=== PATIENT | female | born 1955 | race Caucasian/White ===

== ENCOUNTER 2020-04-01 19:17 | Inpatient (IN) | payer MEDICARE ==
[2020-04-05] MEDS: Ibuprofen 600 MG TAB PO PRN (19:56)
[2020-04-05] MEDS ORDERED: Midodrine HCl 2.5 MG TAB PO PRN (20:30)
[2020-04-05] MEDS ORDERED: Loperamide HCl 2 MG CAP PO PRN (20:30)
[2020-04-05] MEDS ORDERED: diphenhydrAMINE 25 MG CAP PO PRN (20:30)
[2020-04-05] MEDS ORDERED: clonazePAM 1 MG TAB PO PRN (20:44)
[2020-04-05] MEDS ORDERED: Artificial Tear Sol 15 ML BOT EA EYE PRN (21:09)
[2020-04-05] MEDS ORDERED: Simethicone Chewable 80 MG TAB PO PRN (21:11)
[2020-04-05] MEDS: Ascorbic Acid 500 mg Chewable Tablet PO SCH (21:26)
[2020-04-05] MEDS: Senokot S 8.6-50 MG TAB PO SCH (21:32)
[2020-04-05] MEDS: traZODone HCl 50 MG TAB PO SCH (21:33)
[2020-04-05] MEDS: Famotidine 20 MG TAB PO SCH (21:34)
[2020-04-05] MEDS: levETIRAcetam 500 MG TAB PO SCH (21:34)
[2020-04-05] MEDS: Metoprolol Tartrate 25 MG TAB PO SCH (21:34)
[2020-04-05] MEDS: Venlafaxine HCl 37.5 MG TAB PO SCH (21:35)
[2020-04-05] MEDS: Pilocarpine 5 MG TAB PO SCH (21:36)
[2020-04-05] MEDS: cloNIDine 0.1 MG TAB PO SCH (21:42)
[2020-04-05] MEDS: Melatonin 3 MG TAB PO PRN (21:49)
[2020-04-06] MEDS: HYDROcodone/Acetaminophen 10/325 mg Tablet PO PRN ×2 (05:39→12:05)
[2020-04-06] MEDS: cloNIDine 0.1 MG TAB PO SCH ×2 (06:28→11:50)
[2020-04-06] MEDS: Ibuprofen 600 MG TAB PO PRN ×2 (06:34→14:01)
[2020-04-06] MEDS ORDERED: Ibuprofen 600 MG TAB PO SCH (07:30)
[2020-04-06 07:35] LABS: Bilirubin Negative (Negative); Blood, Urine Moderate (Negative); Clarity Cloudy (Clear); Glucose, Urine (Dipstick) Negative (Negative); Ketone, Urine Negative (Negative); Leukocyte Large (Negative); Nitrite Negative (Negative); Protein, Urine (Dipstick) 30 mg/dL (Neg-Trace); Urobilinogen 0.2 mg/dL (Less than 2)
[2020-04-06 07:53] LABS: Bacteria/HPF 2+ HPF (None Seen)
[2020-04-06] MEDS: Polyethylene Glycol 3350 17 GM Packet PO SCH (08:32)
[2020-04-06] MEDS: Famotidine 20 MG TAB PO SCH ×2 (08:32→20:30)
[2020-04-06] MEDS: Losartan Potassium 50 MG TAB PO SCH (08:32)
[2020-04-06] MEDS: Aspirin 81 mg Enteric Coated Tablet PO SCH (08:32)
[2020-04-06] MEDS: Thyroid 30 MG TAB PO SCH (08:32)
[2020-04-06] MEDS: Senokot S 8.6-50 MG TAB PO SCH ×2 (08:32→20:32)
[2020-04-06] MEDS: Bupropion 150 MG SR TAB PO SCH ×2 (08:32→20:29)
[2020-04-06] MEDS: Pilocarpine 5 MG TAB PO SCH ×3 (08:33→20:30)
[2020-04-06] MEDS: Clopidogrel Bisulfate 75 MG TAB PO SCH (08:33)
[2020-04-06] MEDS: levETIRAcetam 500 MG TAB PO SCH ×2 (08:34→20:30)
[2020-04-06] MEDS: Ferrous Sulfate 325 MG TAB PO SCH ×2 (08:34→16:45)
[2020-04-06] MEDS: Ascorbic Acid 500 mg Chewable Tablet PO SCH ×2 (08:34→20:33)
[2020-04-06] MEDS: Metoprolol Tartrate 25 MG TAB PO SCH ×2 (08:35→20:31)
[2020-04-06] MEDS: Venlafaxine HCl 37.5 MG TAB PO SCH ×2 (08:35→20:33)
[2020-04-06] MEDS ORDERED: Polyethylene Glycol 3350 17 GM Packet PO PRN (15:43)
[2020-04-06] MEDS ORDERED: cloNIDine 0.1 MG TAB PO PRN (15:43)
[2020-04-06] MEDS: traZODone HCl 50 MG TAB PO SCH (20:32)
--- NOTE | 2020-04-06 22:59 | HP ---
PRIMARY CARE PHYSICIAN: Out of town. REASON FOR ADMISSION: For skilled rehabilitation at [facility] status post mechanical fall, which led to fracture of right tibia and fibula and seizure disorder with acute metabolic encephalopathy, now resolved. HISTORY OF PRESENT ILLNESS: Ms. 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 The patient presented to [facility] in [place] on the 22 of March after a mechanical fall and upon evaluation, she was noted to have a right tibia and fibula fracture. The patient denied any loss of consciousness or seizure activity due to her seizure history and confirmed this. The patient was seen by orthopedic surgeon and had a right tibia intramedullary nail by Dr. Beltre on March 23, 2020. The patient tolerated the surgical procedure well and she progressively improved, but unfortunately admission was complicated by episodes of hallucination and confusion about 4 to 5 days after surgical procedure. Initially, the patient was thought that confusion and hallucinations were due to gabapentin and this was discontinued. Again, it did not resolve and they thought this started after she was started on muscle relaxant, Flexeril. This was also discontinued. Unfortunately, the patient's confusion, hallucinations, shaking spells, and anxiety continued to worsen. The patient had a CAT scan of the brain done on the 01 of April and this showed a stable hyperdense lesion in the right temporal lobe, shown to represent a cavernoma on prior MRI with no acute intracranial abnormality. The patient was seen by neurologist, Dr. Saavedra, on the and she had an EEG done on the . Per Neurology, it was best to load with Keppra 1000 and then slowly taper down Wellbutrin as this was thought to lower the seizure threshold. Patient progressively improved after medication changes and on April 02, she was doing much better and by April 05, per family, she was back to baseline. Due to the complication and recent surgery, the decision was made to transfer the patient to skilled rehabilitation prior to discharge back to her home. During hospitalization, it was also noted the patient had a mild anemia due to postoperation and she was started on ferrous sulfate b.i.d. Upon evaluation of patient today, she was excited to be in facility. She continues to complain of lower back pain which is chronic and right-sided leg pain. The patient denies any chest pain. She states she is having regular bowel movements. She denies any shortness of breath, any palpitations, or dizziness. PAST MEDICAL HISTORY: 1. CVA with residual left-sided weakness. 2. Seizure disorder. 3. Atrial fibrillation. 4. Anxiety. 5. Chronic back pain. 6. Hypertension. ALLERGIES: BACLOFEN, BETAMETHASONE, CAPTOPRIL, CARVEDILOL, DILTIAZEM, IODINE, LACTOSE, LEVOTHYROXINE, MUPIROCIN, MACROBID, PREDNISONE, AND SULFA. CODE STATUS: The patient is a full code. PAST SURGICAL HISTORY: 1. Carotid endarterectomy. 2. Laminectomy. 3. Liver biopsy. 4. Facial fracture surgery. 5. Colon resection. 6. Now with right tibia-fibula fracture with right tibia intramedullary nail on March 23, 2020. SOCIAL HISTORY: The patient lives at home with her spouse. She denies any tobacco, alcohol, or illicit drug use. The patient states she is a former smoker for more than 10 years ago. MEDICATIONS: 1. [place] 10/325 one tab q.i.d. p.r.n. 2. Artificial Tears p.r.n. 3. Ascorbic acid 500 b.i.d. 4. Aspirin 81 mg b.i.d. 5. Wellbutrin 75 mg p.o. b.i.d. 6. Klonopin 1 mg p.o. t.i.d. p.r.n. anxiety. 7. Clonidine 0.1 mg q.6 p.r.n. with SBP greater than 170. 8. Plavix 75 mg daily. 9. Benadryl 25 mg q.6 p.r.n. itching or insomnia. 10. Pepcid 20 b.i.d. 11. Ferrous sulfate 325 mg b.i.d. 12. Motrin 600 mg q.8 p.r.n. for moderate pain. 13. Keppra 1000 mg b.i.d. 14. Losartan 50 mg daily. 15. Melatonin 3 mg q.8 p.r.n. 16. Metoprolol 25 mg b.i.d. 17. Midodrine 5 mg p.o. t.i.d. low blood pressure p.r.n. 18. Pilocarpine 5 mg t.i.d. 19. MiraLAX 17 g p.o. p.r.n. 20. p.o. at bedtime p.r.n. 21. Ace Thyroid 60 mg daily. 22. Trazodone 50 mg at bedtime. 23. Effexor 75 mg b.i.d. CODE STATUS: Patient is a full code. REVIEW OF SYSTEMS: GENERAL: Patient complains of generalized weakness. Denies any fevers or chills. HEENT: Eyes; denies eye pain, vision changes, conjunctiva information. Ear, nose, and throat; denies ear pain, discharge, mouth sores, or nasal congestion. RESPIRATORY: Patient denies any cough, shortness of breath, or orthopnea. CARDIOVASCULAR: Denies any chest pain, palpitation. GASTROINTESTINAL: Denies any nausea, vomiting, abdominal pain, or diarrhea. GENITOURINARY: Denies dysuria, frequency, urgency, or hematuria. MUSCULOSKELETAL: Patient does complain of severe lower back pain. Patient complaining of right lower leg pain. SKIN: Patient complains of bruising and ecchymoses to right lower extremities. NEUROLOGIC: Patient and complains of weakness. PSYCHIATRIC: Patient denies any confusion, depression, hallucinations. PHYSICAL EXAMINATION: VITAL SIGNS: Temperature 98.5, pulse 65, respirations 18, blood pressure 118/69, O2 saturation 99% on room air. GENERAL: The patient is alert, awake, and oriented x3. Sitting comfortably in bed, no apparent distress. HEENT: Normocephalic, atraumatic. Oral mucous membranes are moist. Eyes are nonicteric sclerae. NECK: Supple, symmetrical. No JVD. RESPIRATORY: Clear to auscultation bilaterally. No wheezing, rales, or rhonchi. CARDIOVASCULAR: Normal S1, S2. No murmurs. GASTROINTESTINAL: Positive bowel sounds. Nontender and nondistended. EXTREMITIES: Patient does have well-healing incision to right knee and right lateral lower leg. The patient does have some swelling to the right lower extremities. SKIN: Patient does have significant bruising and ecchymoses to right lower extremities. PSYCHIATRY: Patient does have a normal affect, normal behavior. Alert, awake, and oriented x3. NEUROLOGICAL: Patient does have some weakness to the right lower extremity. Otherwise, cranial nerves 2-12 is grossly intact. ASSESSMENT: 1. Status post ground level fall, on Plavix. 2. Right tibia-fibula fracture, status post right intramedullary nail. 3. Left great toe fracture, treated non-operatively. 4. Seizure disorder, now well controlled. 5. Acute metabolic encephalopathy, resolved. 6. Hypertension. 7. History of stroke with left-sided residual weakness. 8. Hypothyroidism. 9. Right temporal lobe mass, chronic. 10. Acute blood loss anemia. PLAN: Patient is a 64-year-old female, who is being admitted to [facility] due to a mechanical fall resulting in a right tibia-fibula fracture, status post right intramedullary nail. The patient had complications of seizure disorder and hallucinations, now resolved. We will consult Physical Therapy and Occupational Therapy to help with gait, balance, ambulation, and strengthening. We will consult Occupational Therapy to help with activities of daily living prior to discharge back to her home. We will place the patient back on all home medications. We will place the patient on seizure precautions. We will place the patient on the Plavix and aspirin for DVT prophylaxis and Pepcid for GI prophylaxis. We will monitor patient closely for any hemodynamic instability. We will continue patient on ferrous sulfate for acute anemia. ESTIMATED LENGTH OF STAY: 2 to 3 weeks. DISPOSITION: Back to her home with her . Estimated time used to prepare and complete this H and P and evaluate the patient is greater than 60 minutes. Job ID: [id number]
[2020-04-07] MEDS: HYDROcodone/Acetaminophen 10/325 mg Tablet PO PRN ×3 (00:15→17:12)
[2020-04-07] MEDS: Ascorbic Acid 500 mg Chewable Tablet PO SCH ×2 (08:30→21:16)
[2020-04-07] MEDS: Famotidine 20 MG TAB PO SCH ×2 (08:30→21:17)
[2020-04-07] MEDS: Metoprolol Tartrate 25 MG TAB PO SCH ×2 (08:30→21:19)
[2020-04-07] MEDS: Ferrous Sulfate 325 MG TAB PO SCH ×2 (08:30→17:13)
[2020-04-07] MEDS: Losartan Potassium 50 MG TAB PO SCH (08:30)
[2020-04-07] MEDS: levETIRAcetam 500 MG TAB PO SCH ×2 (08:30→21:17)
[2020-04-07] MEDS: Clopidogrel Bisulfate 75 MG TAB PO SCH (08:30)
[2020-04-07] MEDS: Aspirin 81 mg Enteric Coated Tablet PO SCH (08:30)
[2020-04-07] MEDS: Bupropion 150 MG SR TAB PO SCH ×2 (08:31→21:18)
[2020-04-07] MEDS: Pilocarpine 5 MG TAB PO SCH ×3 (08:31→21:16)
[2020-04-07] MEDS: Thyroid 30 MG TAB PO SCH (08:31)
[2020-04-07] MEDS: Venlafaxine HCl 37.5 MG TAB PO SCH ×2 (08:31→21:16)
[2020-04-07] MEDS: Polyethylene Glycol 3350 17 GM Packet PO SCH (08:31)
[2020-04-07] MEDS: Senokot S 8.6-50 MG TAB PO SCH ×2 (08:31→21:16)
[2020-04-07] MEDS ORDERED: clonazePAM 0.5 MG TAB PO PRN (11:23)
[2020-04-07] MEDS: Ibuprofen 800 MG TAB PO PRN ×2 (11:30→21:15)
[2020-04-07 15:59] VITALS: BMI 22.4
[2020-04-07] MEDS: traZODone HCl 50 MG TAB PO SCH (21:19)
[2020-04-07] MEDS: Melatonin 3 MG TAB PO PRN (21:25)
[2020-04-08] MEDS: HYDROcodone/Acetaminophen 10/325 mg Tablet PO PRN ×3 (08:20→22:30)
[2020-04-08] MEDS: Ferrous Sulfate 325 MG TAB PO SCH ×2 (08:21→17:10)
[2020-04-08] MEDS: Aspirin 81 mg Enteric Coated Tablet PO SCH (08:21)
[2020-04-08] MEDS: Pilocarpine 5 MG TAB PO SCH ×3 (08:21→20:45)
[2020-04-08] MEDS: Bupropion 150 MG SR TAB PO SCH ×2 (08:21→20:41)
[2020-04-08] MEDS: Senokot S 8.6-50 MG TAB PO SCH ×2 (08:22→20:45)
[2020-04-08] MEDS: Venlafaxine HCl 37.5 MG TAB PO SCH ×2 (08:22→20:45)
[2020-04-08] MEDS: Losartan Potassium 50 MG TAB PO SCH (08:23)
[2020-04-08] MEDS: Clopidogrel Bisulfate 75 MG TAB PO SCH (08:23)
[2020-04-08] MEDS: Famotidine 20 MG TAB PO SCH ×2 (08:23→20:45)
[2020-04-08] MEDS: Polyethylene Glycol 3350 17 GM Packet PO SCH (08:23)
[2020-04-08] MEDS: Metoprolol Tartrate 25 MG TAB PO SCH ×2 (08:23→20:49)
[2020-04-08] MEDS: levETIRAcetam 500 MG TAB PO SCH ×2 (08:23→20:45)
[2020-04-08] MEDS: Thyroid 30 MG TAB PO SCH (08:23)
[2020-04-08] MEDS: Ascorbic Acid 500 mg Chewable Tablet PO SCH ×2 (08:24→20:45)
[2020-04-08] MEDS ORDERED: Cipro 250 MG TAB PO SCH (10:30)
[2020-04-08] MEDS: Ibuprofen 800 MG TAB PO PRN ×2 (11:07→20:45)
[2020-04-08] MEDS: traZODone HCl 50 MG TAB PO SCH (20:41)
[2020-04-09] MEDS: Polyethylene Glycol 3350 17 GM Packet PO SCH (08:43)
[2020-04-09] MEDS: Ferrous Sulfate 325 MG TAB PO SCH ×2 (08:44→17:56)
[2020-04-09] MEDS: Pilocarpine 5 MG TAB PO SCH ×3 (08:44→21:28)
[2020-04-09] MEDS: Bupropion 150 MG SR TAB PO SCH ×2 (08:44→21:24)
[2020-04-09] MEDS: levETIRAcetam 500 MG TAB PO SCH ×2 (08:44→21:25)
[2020-04-09] MEDS: Thyroid 30 MG TAB PO SCH (08:44)
[2020-04-09] MEDS: Famotidine 20 MG TAB PO SCH ×2 (08:44→21:25)
[2020-04-09] MEDS: Aspirin 81 mg Enteric Coated Tablet PO SCH (08:45)
[2020-04-09] MEDS: HYDROcodone/Acetaminophen 10/325 mg Tablet PO PRN ×2 (08:45→21:35)
[2020-04-09] MEDS: Senokot S 8.6-50 MG TAB PO SCH ×2 (08:45→21:27)
[2020-04-09] MEDS: Clopidogrel Bisulfate 75 MG TAB PO SCH (08:45)
[2020-04-09] MEDS: Venlafaxine HCl 37.5 MG TAB PO SCH ×2 (08:46→21:30)
[2020-04-09] MEDS: Losartan Potassium 50 MG TAB PO SCH (08:47)
[2020-04-09] MEDS: Ascorbic Acid 500 mg Chewable Tablet PO SCH ×2 (08:47→21:24)
[2020-04-09] MEDS: Metoprolol Tartrate 25 MG TAB PO SCH ×2 (08:47→21:28)
[2020-04-09] MEDS: Ibuprofen 800 MG TAB PO PRN (13:01)
[2020-04-09] MEDS ORDERED: Cipro 250 MG TAB PO SCH (15:30)
[2020-04-09] MEDS: Cipro 250 MG TAB PO SCH (21:23)
[2020-04-09] MEDS: traZODone HCl 50 MG TAB PO SCH (21:27)
[2020-04-09] MEDS: Melatonin 3 MG TAB PO PRN (21:30)
[2020-04-10] MEDS: HYDROcodone/Acetaminophen 10/325 mg Tablet PO PRN ×3 (05:08→21:23)
[2020-04-10] MEDS: Cipro 250 MG TAB PO SCH ×2 (05:08→21:11)
[2020-04-10] MEDS: Famotidine 20 MG TAB PO SCH ×2 (08:29→21:13)
[2020-04-10] MEDS: Thyroid 30 MG TAB PO SCH (08:29)
[2020-04-10] MEDS: Clopidogrel Bisulfate 75 MG TAB PO SCH (08:29)
[2020-04-10] MEDS: Ferrous Sulfate 325 MG TAB PO SCH ×2 (08:30→16:47)
[2020-04-10] MEDS: Venlafaxine HCl 37.5 MG TAB PO SCH ×2 (08:30→21:16)
[2020-04-10] MEDS: Senokot S 8.6-50 MG TAB PO SCH ×2 (08:30→21:16)
[2020-04-10] MEDS: levETIRAcetam 500 MG TAB PO SCH ×2 (08:30→21:13)
[2020-04-10] MEDS: Pilocarpine 5 MG TAB PO SCH ×3 (08:30→21:15)
[2020-04-10] MEDS: Bupropion 150 MG SR TAB PO SCH ×2 (08:30→21:12)
[2020-04-10] MEDS: Ascorbic Acid 500 mg Chewable Tablet PO SCH ×2 (08:31→21:12)
[2020-04-10] MEDS: Metoprolol Tartrate 25 MG TAB PO SCH ×2 (08:31→21:15)
[2020-04-10] MEDS: Aspirin 81 mg Enteric Coated Tablet PO SCH (08:31)
[2020-04-10] MEDS: Polyethylene Glycol 3350 17 GM Packet PO SCH (08:31)
[2020-04-10] MEDS: Losartan Potassium 50 MG TAB PO SCH (08:31)
[2020-04-10] MEDS: Ibuprofen 800 MG TAB PO PRN ×2 (10:07→16:48)
[2020-04-10] MEDS: traZODone HCl 50 MG TAB PO SCH (21:16)
[2020-04-10] MEDS: Melatonin 3 MG TAB PO PRN (21:18)
[2020-04-11] MEDS: HYDROcodone/Acetaminophen 10/325 mg Tablet PO PRN ×3 (05:43→20:49)
[2020-04-11] MEDS: Cipro 250 MG TAB PO SCH ×2 (05:43→20:42)
[2020-04-11] MEDS: levETIRAcetam 500 MG TAB PO SCH ×2 (08:21→20:44)
[2020-04-11] MEDS: Bupropion 150 MG SR TAB PO SCH ×2 (08:21→20:42)
[2020-04-11] MEDS: Senokot S 8.6-50 MG TAB PO SCH ×2 (08:21→20:45)
[2020-04-11] MEDS: Thyroid 30 MG TAB PO SCH (08:21)
[2020-04-11] MEDS: Pilocarpine 5 MG TAB PO SCH ×3 (08:21→20:45)
[2020-04-11] MEDS: Famotidine 20 MG TAB PO SCH ×2 (08:22→20:43)
[2020-04-11] MEDS: Ibuprofen 800 MG TAB PO PRN ×2 (08:22→16:58)
[2020-04-11] MEDS: Aspirin 81 mg Enteric Coated Tablet PO SCH (08:22)
[2020-04-11] MEDS: Losartan Potassium 50 MG TAB PO SCH (08:22)
[2020-04-11] MEDS: Clopidogrel Bisulfate 75 MG TAB PO SCH (08:22)
[2020-04-11] MEDS: Ferrous Sulfate 325 MG TAB PO SCH ×2 (08:23→16:58)
[2020-04-11] MEDS: Venlafaxine HCl 37.5 MG TAB PO SCH ×2 (08:23→20:44)
[2020-04-11] MEDS: Metoprolol Tartrate 25 MG TAB PO SCH ×2 (08:23→20:45)
[2020-04-11] MEDS: Polyethylene Glycol 3350 17 GM Packet PO SCH (08:23)
[2020-04-11] MEDS: Ascorbic Acid 500 mg Chewable Tablet PO SCH ×2 (08:23→20:42)
[2020-04-11] MEDS: traZODone HCl 50 MG TAB PO SCH (20:44)
[2020-04-11] MEDS: Melatonin 3 MG TAB PO PRN (20:44)
[2020-04-12] MEDS: Ibuprofen 800 MG TAB PO PRN (03:14)
[2020-04-12 07:26] VITALS: BP 146/72; TEMP 97.9
[2020-04-12] MEDS: Ferrous Sulfate 325 MG TAB PO SCH (08:21)
[2020-04-12] MEDS: Ascorbic Acid 500 mg Chewable Tablet PO SCH (08:22)
[2020-04-12] MEDS: Aspirin 81 mg Enteric Coated Tablet PO SCH (08:22)
[2020-04-12] MEDS: Bupropion 150 MG SR TAB PO SCH (08:23)
[2020-04-12] MEDS: Metoprolol Tartrate 25 MG TAB PO SCH (08:24)
[2020-04-12] MEDS: Thyroid 30 MG TAB PO SCH (08:24)
[2020-04-12] MEDS: Senokot S 8.6-50 MG TAB PO SCH (08:24)
[2020-04-12] MEDS: Venlafaxine HCl 37.5 MG TAB PO SCH (08:25)
[2020-04-12] MEDS: levETIRAcetam 500 MG TAB PO SCH (08:25)
[2020-04-12] MEDS: Clopidogrel Bisulfate 75 MG TAB PO SCH (08:25)
[2020-04-12] MEDS: Losartan Potassium 50 MG TAB PO SCH (08:26)
[2020-04-12] MEDS: Famotidine 20 MG TAB PO SCH (08:26)
[2020-04-12] MEDS: Pilocarpine 5 MG TAB PO SCH ×2 (08:26→14:33)
[2020-04-12] MEDS: Polyethylene Glycol 3350 17 GM Packet PO SCH (08:27)
[2020-04-12] MEDS: HYDROcodone/Acetaminophen 10/325 mg Tablet PO PRN (08:41)
[2020-04-12] MEDS ORDERED: diphenhydrAMINE 25 MG CAP PO PRN (13:29)
[2020-04-12] MEDS ORDERED: Ibuprofen 800 MG TAB PO SCH (14:00)
[2020-04-12] MEDS ORDERED: HYDROcodone/Acetaminophen 10/325 mg Tablet PO SCH (18:00)
[2020-04-12] MEDS ORDERED: buPROPion 75 MG TAB PO SCH (21:00)
--- NOTE | 2020-04-13 12:20 | DIS ---
DATE OF ADMISSION: 04/05/2020 DATE OF DISCHARGE: 04/12/2020 DISCHARGING PHYSICIAN: Adriana Garcia MD PRIMARY CARE PHYSICIAN: Out of town. DISCHARGE DIAGNOSES: 1. Status post mechanical ground level fall. 2. Right tibia-fibula fracture, status post intramedullary nail repair. 3. Left great toe fracture, treated nonoperatively. 4. Seizure disorder, well controlled. 5. Hypertension. 6. Right temporal lobe mass, chronic. 7. No tobacco use. 8. Hypothyroidism. 9. Urinary tract infection with Escherichia coli. DISCHARGE MEDICATIONS: 1. [place] 10/325 one tab q.6 hours. 2. Ascorbic acid 500 b.i.d. 3. Wellbutrin 75 mg b.i.d. 4. Klonopin 1 mg t.i.d. p.r.n. 5. Clonidine 0.1 mg q.6 p.r.n. SBP greater than 170. 6. Aspirin 81 mg b.i.d. 7. Plavix 75 mg daily. 8. Keppra 1000 b.i.d. 9. Ferrous sulfate 325 b.i.d. 10. Benadryl 25 q.6h p.r.n. itching. 11. Losartan 50 daily. 12. Metoprolol 25 b.i.d. 13. Midodrine 5 mg t.i.d. with low blood pressure. 14. Pilocarpine 5 mg t.i.d. 15. [place] Thyroid 60 mg daily. 16. Effexor 75 mg b.i.d. 17. Trazodone 50 mg at bedtime. 18. Motrin 800 mg t.i.d. p.r.n. for moderate pain. DISCHARGE DISPOSITION: Back to home with . DISCHARGE INSTRUCTIONS: The patient to wear a walking boot while ambulating. The patient to follow up with orthopedic surgeon, Dr. Jara on 05/04/2020. The patient to follow up with neurologist as an outpatient. The patient to follow up with PCP in one week. BRIEF HOSPITAL COURSE: Ms. 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 The patient unfortunately had a mechanical fall on the 22 of March, and upon evaluation, was noted to have a right tibia and fibula fracture. The patient was operated on by orthopedic surgeon, Dr. Jara on the 23 of March. She tolerated surgery well, but unfortunately had postop complications of hallucination, confusion, and seizure disorder. The patient was seen by a neurologist who adjusted medications and patient was back to baseline. Due to physical deconditioning, family recommended and PT recommended the patient to have skilled rehabilitation prior to discharge back to her home. On April 05, the patient was transferred here for skilled rehabilitation. The patient was able to participate in physical therapy nicely. She tolerated PT with no issues. The patient progressed, and on the 12 of April, she was able to walk about 300 feet using a rolling walker by Physical Therapy. The patient was making progress with increased strength and endurance. The patient requested to be discharged home and her stated now he could assist the patient at home with ADLs. The patient was discharged home in a stable condition. She declined physical therapy or home health and states she will be working with the therapies herself at home. Medications were sent to the pharmacy at [facility] in [place] as requested by family members and patient, and the patient was discharged in a stable condition. Discharge vital signs; temperature 97.9, pulse 69, respirations 18, O2 saturation 100% on room air, blood pressure 146/72. Throughout hospitalization here, patient had no episodes of seizure disorder and no episode of hallucination or confusion. During hospitalization, the patient was noted to have a strong urine odor. UA and culture were done and this was found to be positive for urinary tract infection. The patient was asymptomatic, so she was started on Cipro 250 b.i.d. for five days, which patient completed on April 11, 2020. The patient was discharged home in a stable condition. Total length of time used to prepare and evaluate patient for this discharge summary was greater than 45 minutes. Job ID: [id number]
== END 2020-04-12 15:37 | disposition home or self-care (01) | DRG 560 ==
LOC: MADMS 04-05 16:30
PROVIDERS: ADMIT Family Medicine; ATTEND Family Medicine
DX: S82.201D Unspecified fracture of shaft of right tibia, subsequent encounter for closed fracture with routine healing (principal); D62 Acute posthemorrhagic anemia; I69.354 Hemiplegia and hemiparesis following cerebral infarction affecting left non-dominant side; N39.0 Urinary tract infection, site not specified; G89.29 Other chronic pain; M54.9 Dorsalgia, unspecified; G40.909 Epilepsy, unspecified, not intractable, without status epilepticus; I48.91 Unspecified atrial fibrillation; F41.9 Anxiety disorder, unspecified; E03.9 Hypothyroidism, unspecified; G93.89 Other specified disorders of brain; I10 Essential (primary) hypertension; Z90.49 Acquired absence of other specified parts of digestive tract; B96.20 Unspecified Escherichia coli [E. coli] as the cause of diseases classified elsewhere; Z98.890 Other specified postprocedural states; Z87.891 Personal history of nicotine dependence; Z79.82 Long term (current) use of aspirin; Z79.899 Other long term (current) drug therapy; Z88.8 Allergy status to other drugs, medicaments and biological substances; Z88.2 Allergy status to sulfonamides; Z79.01 Long term (current) use of anticoagulants
CPT/HCPCS: 81001; 87077; 87086; 87186